=== PATIENT | male | born 1995 | race Caucasian/White ===

== ENCOUNTER 2020-07-22 14:32 | Emergency (ER) | payer MEDICAID ==
[~2020-07-22] VITALS: Ht 177.8 cm; Wt 79.4 kg
[2020-07-22] MEDS ORDERED: ACETAMINOPHEN 325 MG TABLET ONE (14:45)
[2020-07-22] MEDS: ACETAMINOPHEN 325 MG TABLET PO ONE (14:47)
--- NOTE | 2020-07-22 16:15 | NUR ---
NO obvious distress oral temperature now 100.8
--- NOTE | 2020-07-22 16:48 | NUR ---
Patient discharged to home in stable condition. Written and verbal after care instructions given. Patient verbalizes understanding of instruction.
[2020-07-22 16:49] VITALS: BP 114/75
== END 2020-07-22 16:51 | disposition home or self-care (01) ==
LOC: ER 14:34
DX: U07.1 COVID-19 (principal); J02.9 Acute pharyngitis, unspecified; R00.0 Tachycardia, unspecified
CPT/HCPCS: 87070; 87880; 99283; C9803; U0003; 86403-TC